=== PATIENT | female | born 1980 | race Caucasian/White ===

== ENCOUNTER 2017-04-04 15:55 | Inpatient (IN) | payer BC ==
--- NOTE | 2017-04-04 16:59 | PCM.LDHP ---
<Louise Gama - Last Filed: 04/04/17 17:46> L&D History of Present Illness - General Date of Service: 04/04/17 Admit Problem/Dx: Admission Diagnosis/Problem Admission Diagnosis/Problem "My water broke" 04/04/17 16:50 Source of Information: Patient, Old Records, RN History Limitations: Reports: No Limitations - History of Present Illness Introduction:: 36 year old [id number] at 39w5d with SEBASTIEN 04/06/2017 and regular care presents with spontaneous rupture of membranes. Membranes ruptured at 1530 this afternoon with clear amniotic fluid. She has not been feeling contractions before, during, or after her membranes ruptured. She was experiencing Angelina-Carias contractions for the last week in her abdomen. She has had regular OB appointments with Dr. Jackman. Denies fever, vision changes, headaches, nausea, vomiting, paresthesias, urticaria. Ankle edema has been "better recently". Her mother and Ar are with her in the room. labs: GBS Positive Gonorrhea Negative Chlamydia Negative Wet Prep Negative Trichomonas, clue cells, Fungal elements, Budding yeast HIV Negative HBV Negative RPR Non-Reactive Flu vaccine 12/06/16 Tdap 01/09/17 RN Cervical Check: 3 cm Dilated 50% effaced Timing/Duration: Reports: hour(s):, gradual onset, other (Patient is not feeling contractions, Contractions every 5-6 minutes for 60-90 seconds on monitor ) Location, : Reports: Abdomen (Angelina-Carias felt "in front" ), Uterus Severity: Mild Context: Reports: Rest (Patient had laid down for nap when water broke ) Associated Symptoms: Reports: vaginal discharge (Mucous plug discharge for past week ) - Related Data Allergies/Adverse Reactions: Allergies Allergy/AdvReac Type Severity Reaction Status Date / Time No Known Allergies Allergy Verified 04/04/17 16:23 Home Medications: Home Meds Omeprazole Magnesium [Prilosec Otc] 1 tab PO DAILY 01/31/17 [History] Vit with Ca/FA/Iron [ Plus Iron] 1 tab PO DAILY 01/31/17 [ History] Past Medical History Cardiovascular History: Reports: High Cholesterol Gastrointestinal History: Reports: GERD : 1 Para: 0 Neurological History: Reports: Migraines Psychiatric History: Reports: Anxiety Endocrine/Metabolic History: Reports: Obesity/BMI 30+ Other Endocrine/Metabolic History: Hyperlipidemia, Impaired Glucose Tolerance during controlled by diet Social & Family History - Family History Family Medical History: Noncontributory - Tobacco Use Smoking Status *Q: Former Smoker (Quit 04/2010) - Alcohol Use Alcohol Use History: Yes Days Per Week of Alcohol Use: 1 Number of Drinks Per Day: 1 Total Drinks Per Week: 1 Date of Last Drink: 06/30/16 (No alcohol in ) - Recreational Drug Use Recreational Drug Use: No H&P Review of Systems - Review of Systems: Review Of Systems: See Below General: Denies: Fever, Chills, Fatigue HEENT: Denies: Headaches, Hearing Changes, Sinus Congestion, Sore Throat, Visual Changes Pulmonary: Denies: Shortness of Breath, Wheezing, Cough, Sputum Cardiovascular: Reports: Edema (Bilateral, ankles ). Denies: Chest Pain, Lightheadedness, Syncope Gastrointestinal: Denies: Abdominal Pain, Constipation, Diarrhea, Nausea, Vomiting Genitourinary: Denies: Dysuria, Burning, Pain, Flank Pain Musculoskeletal: Reports: No Symptoms, Neck Pain. Denies: Muscle Pain, Muscle Stiffness Skin: Denies: Mottled, Diaphoresis, Rash, Urticaria Psychiatric: Reports: No Symptoms. Denies: Confusion, Agitation Neurological: Reports: No Symptoms. Denies: Dizziness, Headache, Numbness, Paresthesia, Tingling Hematologic/Lymphatic: Reports: No Symptoms Immunologic: Reports: No Symptoms L&D Exam - Exam Exam: See Below - Vital Signs Vital Signs: BP 142/79 Pulse 102 Temp 98.1F Respiration 14 Sp02 98% on Room Air Weight: 278 lb (at 03/28/17 appointment ) - OB Specific Contraction Intensity: Mild (Patient not feeling contractions) Movement: Active Heart Tones: Present Heart Tones per Min: 150 Heart Rate (FHR) Variability: Minimal (0-5 bpm) Presentation: Right Occiput Posterior (ROP) - Exam General: Alert, Oriented HEENT: Conjunctiva Clear, EOMI, Mucosa Moist & [place], Pupils Reactive Neck: Supple, Trachea Midline Lungs: Clear to Auscultation, Normal Respiratory Effort, Wheezing. No: Crackles , Rhonchi Cardiovascular: Regular Rate, Regular Rhythm, Normal S1. No: Systolic Murmur, Diastolic Murmur GI/Abdominal Exam: Normal Bowel Sounds Back Exam: Normal Inspection, Full Range of Motion Extremities: Normal Inspection, Normal Capillary Refill, Pedal Edema Skin: Warm, Dry, Intact Neurological: Cranial Nerves Intact, Reflexes Equal Bilateral, Normal Speech Psychiatric: Alert, Normal Affect, Normal Mood - Patient Data Lab Results Last 24 hrs: Laboratory Results - last 24 hr 04/04/17 Range/Units 16:00 WBC 11.2 H (5.0-10.0) 10^3/uL RBC 4.36 (4.2-5.4) 10^6/uL Hgb 13.7 (12.0-16.0) g/dL Hct 40.5 (37.0-47.0) % MCV 92.9 (80-100) fL MCH 31.4 (27.0-34.0) pg MCHC 33.8 (33.0-35.0) g/dL Plt Count 346 (150-450) 10^3/uL Result Diagrams: 04/04/17 16:00 - Problem List (1) SNOMED Code(s): 41741419 ICD Code: Z34.90 - ENCNTR FOR SUPRVSN OF NORMAL , UNSP, UNSP TRIMESTER Status: Acute Current Visit: Yes QualifierTitle: Weeks of gestation: 39 weeks Qualified Code(s): Z3A.39 - 39 weeks gestation of Problem List Initiated/Reviewed/Updated: Yes Orders Last 24hrs: Active Orders 24 hr Category Date Time Status Lactated Ringers [Ringers, Lactated] 1,000 ml Med 04/04/17 16:45 Active IV ASDIRECTED Penicillin G Potassium [Pfizerpen] 2.5 millunits Med 04/04/17 21:00 Active Sodium Chloride 0.9% [Normal Saline] 100 ml IV Q4H Penicillin G Potassium [Pfizerpen] 5 millunits Med 04/04/17 17:00 Active Sodium Chloride 0.9% [Normal Saline] 100 ml IV ONETIME Medication Orders Lactated Ringer's (Ringers, Lactated) 1,000 mls @ 125 mls/hr IV ASDIRECTED MARI Penicillin G Potassium 5 (millunits/ Sodium Chloride) 100 mls @ 200 mls/hr IV ONETIME ONE Stop: 04/04/17 17:29 Penicillin G Potassium 2.5 (millunits/ Sodium Chloride) 100 mls @ 200 mls/hr IV Q4H [facility] Assessment/Plan Comment:: Admit to [facility] Delivery. Expecting Normal Spontaneous Vaginal Delivery <TseringAmanda Wil - Last Filed: 04/04/17 18:39> L&D History of Present Illness - General Admit Problem/Dx: Admission Diagnosis/Problem Admission Diagnosis/Problem L&D Exam - Vital Signs Vital Signs: Last Vital Signs Temp 98.1 F 04/04/17 16:05 Pulse 102 H 04/04/17 16:05 Resp 18 04/04/17 16:05 BP 142/79 H 04/04/17 16:05 Pulse Ox - Patient Data Lab Results Last 24 hrs: Laboratory Results - last 24 hr 04/04/17 Range/Units 16:00 WBC 11.2 H (5.0-10.0) 10^3/uL RBC 4.36 (4.2-5.4) 10^6/uL Hgb 13.7 (12.0-16.0) g/dL Hct 40.5 (37.0-47.0) % MCV 92.9 (80-100) fL MCH 31.4 (27.0-34.0) pg MCHC 33.8 (33.0-35.0) g/dL Plt Count 346 (150-450) 10^3/uL Result Diagrams: 04/04/17 16:00 - Problem List (1) Blood type A+ SNOMED Code(s): 636937682 ICD Code: Z67.10 - TYPE A BLOOD, RH POSITIVE Status: Acute Current Visit : Yes (2) Rubella immune SNOMED Code(s): 546532024 ICD Code: Z78.9 - OTHER SPECIFIED HEALTH STATUS Status: Acute Current Visit: Yes (3) Group B Streptococcus carrier, +RV culture, currently SNOMED Code(s): 4394888084984, 4026938979616 ICD Code: O99.820 - STREPTOCOCCUS B CARRIER STATE COMPLICATING Status: Acute Current Visit: Yes (4) Primiparity SNOMED Code(s): 08196122 ICD Code: Z34.00 - ENCNTR FOR SUPRVSN OF NORMAL FIRST , UNSP TRIMESTER Status: Acute Current Visit: Yes (5) Spontaneous rupture of membranes SNOMED Code(s): 441798267 ICD Code: YBO6386 - Status: Acute Current Visit: Yes (6) Glucose intolerance of Status: Acute Current Visit: Yes (7) Obesity affecting in third trimester, antepartum SNOMED Code(s): 440222373325 ICD Code: O99.213 - OBESITY COMPLICATING , THIRD TRIMESTER Status : Acute Current Visit: Yes Problem List Initiated/Reviewed/Updated: Yes Orders Last 24hrs: Active Orders 24 hr Category Date Time Status Regular Diet [DIET] Diet 04/04/17 Dinner Active Lactated Ringers [Ringers, Lactated] 1,000 ml Med 04/04/17 16:45 Active IV ASDIRECTED Oxytocin/Normal Saline [Pitocin in NS 30 UNIT/500 ML] Med 04/04/17 18:30 Active 30 unit in 500 ml IV TITRATE Penicillin G Potassium [Pfizerpen] 2.5 millunits Med 04/04/17 21:00 Active Sodium Chloride 0.9% [Normal Saline] 100 ml IV Q4H Medication Orders Lactated Ringer's (Ringers, Lactated) 1,000 mls @ 125 mls/hr IV ASDIRECTED MARI Last Admin: 04/04/17 17:00 Dose: 125 mls/hr Penicillin G Potassium 2.5 (millunits/ Sodium Chloride) 100 mls @ 200 mls/hr IV Q4H MARI Oxytocin/Sodium Chloride (Pitocin In Ns 30 Unit/500 Ml) 30 unit in 500 mls @ 2 mls/hr IV TITRATE MARI; 2 MUNITS/MIN PRN Reason: Protocol Assessment/Plan Comment:: Assessment: 36yo @ 39w5d with SROM @ 1515 GBS + A+ RI Glucose Intolerance of increased BMI NST reactive Plan: Admit Pitocin infusion to get into active labor pattern AROM of bulging forebag with return large amount of clear fluid monitor glucose PCN prophylaxis for GBS All questions answered for family. Louise Gama, MS3 co-managing hmb
[2017-04-04] MEDS ORDERED: Penicillin G Potassium 5 MILLUNITS in Sodium Chloride 0.9% 100 ML IV ONE (17:00)
[2017-04-04] MEDS: Lactated Ringers 1,000 ML IV SCH ×2 (17:00→21:30)
[2017-04-04] MEDS ORDERED: Oxytocin/Normal Saline 30 UNIT/500 ML BAG IV SCH (18:30)
[2017-04-04] MEDS ORDERED: EPINEPHrine 1 MG/ML SDV ONE (21:06)
[2017-04-04] MEDS ORDERED: fentaNYL 100 MCG/2 ML SDV ONE (21:06)
[2017-04-04] MEDS ORDERED: Acetaminophen 325 MG Tab PO PRN (21:15)
[2017-04-04] MEDS ORDERED: Methylergonovine 0.2 MG/1 ML Amp IM PRN (21:15)
[2017-04-04] MEDS ORDERED: Misoprostol 400 MCG (4 X 100 MCG TAB) RECTAL PRN (21:15)
[2017-04-04] MEDS ORDERED: Carboprost Tromethamine 250 MCG/1 ML Amp IM PRN (21:15)
[2017-04-04] MEDS ORDERED: Sodium Chloride 0.9% 10 ML Syringe FLUSH PRN (21:15)
[2017-04-04] MEDS ORDERED: Lidocaine 1% 30 ML SDV INJECT PRN (21:15)
[2017-04-04] MEDS ORDERED: Lactated Ringers 1,000 ML IV SCH (21:15)
[2017-04-04] MEDS ORDERED: Ondansetron 4 MG/2 ML SDV IV PRN (21:15)
[2017-04-04] MEDS: Penicillin G Potassium 2.5 MILLUNITS in Sodium Chloride 0.9% 100 ML IV SCH (21:18)
--- NOTE | 2017-04-04 21:35 | PCM.SN ---
- Free Text/Narrative Note: Intrathecal. Sitting position, sterile prep and drape. 1 % lidocaine w bicarb for skinwheal to L2 L3 interspace, introducer, 24 ga pencan x 2. Pos CSF, neg heme, neg parasthesia. 0.1 ml pf 1:1000 epi, 0.4 ml pf ns, 20 mcg pf sufenta, 30 mcg pf fentanyl and 6 mg of 0.75% pf bupivacaine injected after CSF aspiration. Pt to L lateral side. Procedure time 2104 to 2129
[2017-04-05] MEDS: Lactated Ringers 1,000 ML IV SCH (00:37)
--- NOTE | 2017-04-05 00:49 | PCM.DEL ---
L & D Note - General Info Date of Service: 04/04/17 (time of delivery: 2342) Mother's Due Date: 04/06/17 (39w5d) - Delivery Note Labor: Spontaneous, Augmented by Oxytocin Delivery Outcome: Livebirth Delivery Method: Spontaneous Vaginal Delivery-Single Infant Delivery Mode: Vacuum Extraction (regular vacuum with one contraction) Presentation: Right Occiput Anterior (BARBY) Nuchal Cord: Present (X2, sommersault maneuver used, tight loops reduced after delivery) Anesthesia Type: Intrathecal (excellent results) Amniotic Fluid Description: Clear Episiotomy Type: None Laceration: 2nd Degree (rectal check done to confirm no involvement), Vaginal, Other (posterior vaginal wall, fairly brisk red bleeding noted, bleeders tied off with 2-0 polysorb Figure of 8) Suture type: Other (Polysorb) Suture size: 2-0 Placenta: Intact, Expressed Cord: 3 Vessels Estimated Blood Loss: 300 Resuscitation Needed: No [place]: Suctioned, Bulb Syringe, Stimulated, Warmed Provider: Amanda Cagle Score 1 min: 9 Score 5 min: 9 Second Stage Interventions: Reports: Encouragement Given, Pushing Effectively, Pushing, McRobert's Position Delivery Comments (Free Text/Narrative):: pushing well with assistance of nursing staff to hold legs back as intrathecal very effective and she is not feeling legs or contractions much. head nearly with contractions/pushing. BARBY position. FHR 90-100s Reviewed use of vacuum. applied with one contraction and delivered with first pull/Louise Natan MS3. Nuchal X2, pt continued pushing and somersault maneuver employed with excellent results. Baby to mom's chest. see rest of delivery note for details. no complications. [facility]mb Vacuum Extractor Progress Note - Alternative Labor Strategies Considered Alternative Labor Strategies Considered:: Reports: Yes Strategies Considered:: Reports: Contraction Intensity Adequate, Position Changes Used to Facilitate Rotation & Descent, Empty Bladder Indications Considered:: Reports: Yes Indications:: Reports: Prolonged 2nd Stage, Shortening of 2nd Stage for Maternal Benefit, Suspicion of Immediate or Potential Compromise Time Out:: Reports: Yes Comments:: head with cxns FHR 90-100s anticipate short use of cxns with immediate success - Patient Prepared Patient Prepared:: Reports: Yes Informed Consent:: Reports: Verbal Risks: Reports: Yes Anesthesia/Analgesia Adequate:: Reports: Yes Comments:: excellent intrathecal - Probability of Success High Probability of Success:: Reports: Yes Weight Estimated:: Reports: AGA Patient Diabetic:: Reports: No (glucose intolerance, good control with diet) Pelvis Adequate:: Reports: Yes Position:: BARBY Asynclitic:: Reports: No Station:: - Application Time Maximum Application Time & Number of Pop-Offs Predetermined:: Reports: Yes Maximum Pressure Maintained in Green Zone (cm Hg):: 1 Total Application Time (min): *max=20min: 1 Number of Times Cup Disengaged:: 0 Type of Vacuum Used:: Reports: Cup: Palacio type, Cup: Soft Vacuum Extraction: Successful Comments:: vacuum one for one pull - Exit Strategy Exit strategy available:: Reports: Yes and resuscitation teams readily available:: Reports: Yes Consult as indicated:: not indicated - General Info Date of Service: 04/04/17 Admission Dx/Problem (Free Text): Admission Diagnosis/Problem Admission Diagnosis/Problem - Patient Data Vitals - Most Recent: Last Vital Signs Temp 98.3 F 04/04/17 18:00 Pulse 91 04/04/17 21:45 Resp 12 04/04/17 21:45 BP 80/52 L 04/04/17 21:45 Pulse Ox 99 04/04/17 21:45 Weight - Most Recent: 278 lb (at 03/28/17 appointment ) I&O - Last 24 Hours: Intake & Output 04/04/17 04/04/17 04/05/17 14:59 22:59 06:59 Intake Total 1200 1000 Balance 1200 1000 Lab Results Last 24 Hours: Laboratory Results - last 24 hr 04/04/17 Range/Units 16:00 WBC 11.2 H (5.0-10.0) 10^3/uL RBC 4.36 (4.2-5.4) 10^6/uL Hgb 13.7 (12.0-16.0) g/dL Hct 40.5 (37.0-47.0) % MCV 92.9 (80-100) fL MCH 31.4 (27.0-34.0) pg MCHC 33.8 (33.0-35.0) g/dL Plt Count 346 (150-450) 10^3/uL Med Orders - Current: Current Medications Acetaminophen (Tylenol) 650 mg PO Q4H PRN PRN Reason: Pain (Mild 1-3) and fever Carboprost Tromethamine (Hemabate Ds) 250 mcg IM ASDIRECTED PRN PRN Reason: HEMORRHAGE Lactated Ringer's (Ringers, Lactated) 1,000 mls @ 125 mls/hr IV ASDIRECTED MARI Last Admin: 04/05/17 00:37 Dose: 125 mls/hr Penicillin G Potassium 2.5 (millunits/ Sodium Chloride) 100 mls @ 200 mls/hr IV Q4H MARI Last Admin: 04/04/17 21:18 Dose: 200 mls/hr Oxytocin/Sodium Chloride (Pitocin In Ns 30 Unit/500 Ml) 30 unit in 500 mls @ 2 mls/hr IV TITRATE MARI; 2 MUNITS/MIN PRN Reason: Protocol Last Titration: 04/05/17 00:08 Dose: 250 mls/hr Lactated Ringer's (Ringers, Lactated) 1,000 mls @ 125 mls/hr IV ASDIRECTED MARI Lidocaine HCl (Xylocaine-Mpf 1%) 30 ml INJECT ASDIRECTED PRN PRN Reason: Perineal Repair Methylergonovine Maleate (Methergine) 0.2 mg IM ASDIRECTED PRN PRN Reason: Hemorrhage Misoprostol (Cytotec) 800 mcg RECTAL ASDIRECTED PRN PRN Reason: Hemorrhage Ondansetron HCl (Zofran) 4 mg IV Q4H PRN PRN Reason: Nausea/Vomiting Last Admin: 04/04/17 21:02 Dose: 4 mg Sodium Chloride (Saline Flush) 10 ml FLUSH ASDIRECTED PRN PRN Reason: Keep Vein Open Discontinued Medications Epinephrine HCl (Adrenalin) Confirm Administered Dose 1 mg .ROUTE .STK-MED ONE Stop: 04/04/17 21:07 Fentanyl (Sublimaze) Confirm Administered Dose 100 mcg .ROUTE .STK-MED ONE Stop: 04/04/17 21:07 Penicillin G Potassium 5 (millunits/ Sodium Chloride) 100 mls @ 200 mls/hr IV ONETIME ONE Stop: 04/04/17 17:29 Last Admin: 04/04/17 17:00 Dose: 200 mls/hr Sodium Bicarbonate (Sodium Bicarbonate 4.2%) Confirm Administered Dose 5 meq .ROUTE .STK-MED ONE Stop: 04/04/17 21:08 Sufentanil Citrate (Sufenta) Confirm Administered Dose 50 mcg .ROUTE .STK-MED ONE Stop: 04/04/17 21:08 - Problem List & Annotations (1) Blood type A+ SNOMED Code(s): 274279115 Code(s): Z67.10 - TYPE A BLOOD, RH POSITIVE Status: Acute Current Visit: Yes (2) Rubella immune SNOMED Code(s): 513382070 Code(s): Z78.9 - OTHER SPECIFIED HEALTH STATUS Status: Acute Current Visit: Yes (3) Group B Streptococcus carrier, +RV culture, currently SNOMED Code(s): 8847931142473, 0902263921243 Code(s): O99.820 - STREPTOCOCCUS B CARRIER STATE COMPLICATING Status: Acute Current Visit: Yes (4) Primiparity SNOMED Code(s): 73991356 Code(s): Z34.00 - ENCNTR FOR SUPRVSN OF NORMAL FIRST , UNSP TRIMESTER Status: Acute Current Visit: Yes (5) Spontaneous rupture of membranes SNOMED Code(s): 080417157 Code(s): HAO5733 - Status: Acute Current Visit: Yes (6) Glucose intolerance of Status: Acute Current Visit: Yes (7) Obesity affecting in third trimester, antepartum SNOMED Code(s): 110236106653 Code(s): O99.213 - OBESITY COMPLICATING , THIRD TRIMESTER Status: Acute Current Visit: Yes - Problem List Review Problem List Initiated/Reviewed/Updated: Yes - My Orders Last 24 Hours: My Active Orders 04/04/17 16:45 Lactated Ringers [Ringers, Lactated] 1,000 ml IV ASDIRECTED 04/04/17 21:00 Penicillin G Potassium [Pfizerpen] 2.5 millunits Sodium Chloride 0.9% [Normal Saline] 100 ml IV Q4H 04/04/17 21:15 Acetaminophen [Tylenol] 650 mg PO Q4H PRN Carboprost Tromethamine [Hemabate DS] 250 mcg IM ASDIRECTED PRN Lactated Ringers [Ringers, Lactated] 1,000 ml IV ASDIRECTED Lidocaine 1% [Xylocaine-MPF 1%] 30 ml INJECT ASDIRECTED PRN Methylergonovine [Methergine] 0.2 mg IM ASDIRECTED PRN Misoprostol [Cytotec] 800 mcg RECTAL ASDIRECTED PRN Ondansetron [Zofran] 4 mg IV Q4H PRN Sodium Chloride 0.9% [Saline Flush] 10 ml FLUSH ASDIRECTED PRN Resuscitation Status Routine 04/04/17 21:16 Patient Status [ADT] Routine Communication Order [RC] ASDIRECTED Notify Provider Vital Signs OB [RC] ASDIRECTED Notify Provider [RC] PRN Up ad Hilda [RC] ASDIRECTED Vital Signs [RC] PER UNIT ROUTINE Saline Lock Insert [OM.PC] Routine 04/04/17 Dinner Clear Liquid Diet [DIET] - Plan Plan:: Assessment: 36yo @ 39w5d with SROM @ 1515 GBS + A+ RI Glucose Intolerance of increased BMI NST reactive Plan: Admit Pitocin infusion to get into active labor pattern AROM of bulging forebag with return large amount of clear fluid monitor glucose PCN prophylaxis for GBS All questions answered for family. Louise Gama, MS3 co-managing hmb Delivery: VAVD @ 4958 on 04-04-17 by Louise Gama M3 with my direct assistance. 2 degree laceration of posterior wall repaired by [facility] viable female APGARs 9 & 9 BW pending nuchal X 2, BARBY see note for further details. hmb
[2017-04-05] MEDS ORDERED: Zolpidem 5 MG Tab PO PRN (01:02)
[2017-04-05] MEDS ORDERED: Benzocaine/Menthol 20%-0.5% Spray 56 GM Canister TOP PRN (01:02)
[2017-04-05] MEDS ORDERED: Simethicone 80 MG Tab.Chew PO PRN (01:02)
[2017-04-05] MEDS: Penicillin G Potassium 2.5 MILLUNITS in Sodium Chloride 0.9% 100 ML IV SCH (06:32)
--- NOTE | 2017-04-05 08:34 | PCM.PNPP ---
<Louise Gama - Last Filed: 04/05/17 08:42> - General Info Date of Service: 04/05/17 Admission Dx/Problem (Free Text): Vaginal Delivery at 39w5d. Subjective Update: Patient resting in bed, no no acute distress. She was able to walk to the bathroom and urinate yesterday with no difficulties. without difficulties. Denies fevers, chills, nausea, vomiting, or paresthesias. Functional Status: Reports: Pain Controlled, Tolerating Diet, Ambulating, Urinating - Review of Systems General: Reports: No Symptoms HEENT: Reports: No Symptoms. Denies: Headaches, Sinus Congestion, Sore Throat Pulmonary: Reports: No Symptoms. Denies: Cough, Wheezing Cardiovascular: Reports: No Symptoms Gastrointestinal: Reports: No Symptoms. Denies: Nausea, Vomiting Genitourinary: Reports: No Symptoms, Pain (Vaginal wall repair after delivery ) Musculoskeletal: Reports: No Symptoms Skin: Reports: No Symptoms. Denies: Cyanosis, Jaundice Neurological: Reports: No Symptoms. Denies: Headache, Paresthesia, Difficulty Walking Psychiatric: Reports: No Symptoms - General Info Date of Service: 04/05/17 - Patient Data Vital Signs - Most Recent: Last Vital Signs Temp 98.3 F 04/04/17 18:00 Pulse 80 04/04/17 23:15 Resp 12 04/04/17 23:15 BP 98/55 L 04/04/17 23:15 Pulse Ox 99 04/04/17 23:15 Weight - Most Recent: 278 lb (at 03/28/17 appointment ) I&O - Last 24 Hours: Intake & Output 04/04/17 04/05/17 04/05/17 22:59 06:59 14:59 Intake Total 1200 3650 Output Total 1175 Balance 1200 2475 Lab Results - Last 24 Hours: Laboratory Results - last 24 hr 04/04/17 Range/Units 16:00 WBC 11.2 H (5.0-10.0) 10^3/uL RBC 4.36 (4.2-5.4) 10^6/uL Hgb 13.7 (12.0-16.0) g/dL Hct 40.5 (37.0-47.0) % MCV 92.9 (80-100) fL MCH 31.4 (27.0-34.0) pg MCHC 33.8 (33.0-35.0) g/dL Plt Count 346 (150-450) 10^3/uL Med Orders - Current: Current Medications Acetaminophen (Tylenol) 650 mg PO Q4H PRN PRN Reason: Pain (Mild 1-3) and fever Benzocaine/Menthol (Dermoplast Pain Relief Matthews) 0 gm TOP Q4H PRN PRN Reason: Perineal comfort measures Carboprost Tromethamine (Hemabate Ds) 250 mcg IM ASDIRECTED PRN PRN Reason: HEMORRHAGE Docusate Sodium (Colace) 100 mg PO BID PRN PRN Reason: Constipation Lactated Ringer's (Ringers, Lactated) 1,000 mls @ 125 mls/hr IV ASDIRECTED MARI Last Admin: 04/05/17 00:37 Dose: 125 mls/hr Oxytocin/Sodium Chloride (Pitocin In Ns 30 Unit/500 Ml) 30 unit in 500 mls @ 2 mls/hr IV TITRATE MARI; 2 MUNITS/MIN PRN Reason: Protocol Last Titration: 04/05/17 01:44 Dose: 50 mls/hr Lactated Ringer's (Ringers, Lactated) 1,000 mls @ 125 mls/hr IV ASDIRECTED MARI Ibuprofen (Motrin) 800 mg PO Q8H PRN PRN Reason: Mild Pain or Fever Methylergonovine Maleate (Methergine) 0.2 mg IM ASDIRECTED PRN PRN Reason: Hemorrhage Misoprostol (Cytotec) 800 mcg RECTAL ASDIRECTED PRN PRN Reason: Hemorrhage Ondansetron HCl (Zofran) 4 mg IV Q4H PRN PRN Reason: Nausea/Vomiting Last Admin: 04/04/17 21:02 Dose: 4 mg Prenat Multivit/[employer] Tuber Machine Operator/Iron/Folic Ac ( Plus Iron) 1 each PO DAILY [facility] Simethicone (Simethicone) 80 mg PO Q4H PRN PRN Reason: Gas Sodium Chloride (Saline Flush) 10 ml FLUSH ASDIRECTED PRN PRN Reason: Keep Vein Open Zolpidem Tartrate (Ambien) 5 mg PO BEDTIME PRN PRN Reason: Insomnia Discontinued Medications Epinephrine HCl (Adrenalin) Confirm Administered Dose 1 mg .ROUTE .STK-MED ONE Stop: 04/04/17 21:07 Last Admin: 04/05/17 06:31 Dose: Not Given Fentanyl (Sublimaze) Confirm Administered Dose 100 mcg .ROUTE .STK-MED ONE Stop: 04/04/17 21:07 Last Admin: 04/05/17 06:31 Dose: Not Given Penicillin G Potassium 5 (millunits/ Sodium Chloride) 100 mls @ 200 mls/hr IV ONETIME ONE Stop: 04/04/17 17:29 Last Admin: 04/04/17 17:00 Dose: 200 mls/hr Penicillin G Potassium 2.5 (millunits/ Sodium Chloride) 100 mls @ 200 mls/hr IV Q4H MARI Last Admin: 04/05/17 06:32 Dose: Not Given Lidocaine HCl (Xylocaine-Mpf 1%) 30 ml INJECT ASDIRECTED PRN PRN Reason: Perineal Repair Sodium Bicarbonate (Sodium Bicarbonate 4.2%) Confirm Administered Dose 5 meq .ROUTE .STK-MED ONE Stop: 04/04/17 21:08 Last Admin: 04/05/17 06:32 Dose: Not Given Sufentanil Citrate (Sufenta) Confirm Administered Dose 50 mcg .ROUTE .STK-MED ONE Stop: 04/04/17 21:08 Last Admin: 04/05/17 06:32 Dose: Not Given - Interaction Infant Disposition, : in Room with Family Infant Interaction: Holding Feeding: Breastfed Infant; Nursed Well (Has not breast fed this AM, Infant refuse ) Support Person: Significant Other - Recovery Exam Fundal Tone: Firm Fundal Level: At Umbilicus Fundal Placement: Midline Lochia Color: Rubra/Red Bladder Status: Voiding Urinary Elimination: Voided - Exam General: Alert, Oriented, No Acute Distress HEENT: Pupils Equal, EOMI, Mucous Membr. Moist/[place] Neck: Supple Lungs: Clear to Auscultation, Normal Respiratory Effort. No: Crackles, Wheezing Cardiovascular: Regular Rate, Regular Rhythm. No: No Murmurs GI/Abdominal Exam: Normal Bowel Sounds, Soft, Rebound Extremities: Normal Inspection, Normal Capillary Refill Skin: Warm, Dry, Intact Wound/Incisions: Healing Well Neurological: No New Focal Deficit Psy/Mental Status: Alert, Normal Affect, Normal Mood - Problem List & Annotations (1) SNOMED Code(s): 83704109 Code(s): Z34.90 - ENCNTR FOR SUPRVSN OF NORMAL , UNSP, UNSP TRIMESTER Status: Acute Current Visit: Yes QualifierTitle: Weeks of gestation: 39 weeks Qualified Code(s): Z3A.39 - 39 weeks gestation of - Problem List Review Problem List Initiated/Reviewed/Updated: Yes - My Orders Last 24 Hours: My Active Orders 04/04/17 18:30 Oxytocin/Normal Saline [Pitocin in NS 30 UNIT/500 ML] 30 unit in 500 ml IV TITRATE - Assessment Assessment:: with vacuum assisted vaginal delivery, recovering well. - Plan Plan:: Assessment: 36yo @ 39w5d with SROM @ 1515 Delivery of viable female with 2 degree laceration of posterior wall repaired by Dr. Cagle GBS + treated with penicillin A+ RI Glucose Intolerance of increased BMI Plan: Plan for discharge home 04/06/17 Continue post- care per RN protocol monitor bedside glucose <Amanda Cagle - Last Filed: 04/06/17 01:00> - Patient Data Vital Signs - Most Recent: Last Vital Signs Temp 98.8 F 04/05/17 21:12 Pulse 95 04/05/17 21:12 Resp 18 04/05/17 21:12 BP 118/63 04/05/17 21:12 Pulse Ox 99 04/05/17 21:12 Med Orders - Current: Current Medications Acetaminophen (Tylenol) 650 mg PO Q4H PRN PRN Reason: Pain (Mild 1-3) and fever Benzocaine/Menthol (Dermoplast Pain Relief Matthews) 0 gm TOP Q4H PRN PRN Reason: Perineal comfort measures Carboprost Tromethamine (Hemabate Ds) 250 mcg IM ASDIRECTED PRN PRN Reason: HEMORRHAGE Docusate Sodium (Colace) 100 mg PO BID PRN PRN Reason: Constipation Last Admin: 04/05/17 20:40 Dose: 100 mg Lactated Ringer's (Ringers, Lactated) 1,000 mls @ 125 mls/hr IV ASDIRECTED MARI Last Admin: 04/05/17 00:37 Dose: 125 mls/hr Oxytocin/Sodium Chloride (Pitocin In Ns 30 Unit/500 Ml) 30 unit in 500 mls @ 2 mls/hr IV TITRATE MARI; 2 MUNITS/MIN PRN Reason: Protocol Last Titration: 04/05/17 01:44 Dose: 50 mls/hr Lactated Ringer's (Ringers, Lactated) 1,000 mls @ 125 mls/hr IV ASDIRECTED MARI Ibuprofen (Motrin) 800 mg PO Q8H PRN PRN Reason: Mild Pain or Fever Last Admin: 04/05/17 20:40 Dose: 800 mg Methylergonovine Maleate (Methergine) 0.2 mg IM ASDIRECTED PRN PRN Reason: Hemorrhage Misoprostol (Cytotec) 800 mcg RECTAL ASDIRECTED PRN PRN Reason: Hemorrhage Ondansetron HCl (Zofran) 4 mg IV Q4H PRN PRN Reason: Nausea/Vomiting Last Admin: 04/04/17 21:02 Dose: 4 mg Prenat Multivit/[place]/Iron/Folic Ac ( Plus Iron) 1 each PO DAILY [facility] Last Admin: 04/05/17 08:38 Dose: 1 each Simethicone (Simethicone) 80 mg PO Q4H PRN PRN Reason: Gas Sodium Chloride (Saline Flush) 10 ml FLUSH ASDIRECTED PRN PRN Reason: Keep Vein Open Zolpidem Tartrate (Ambien) 5 mg PO BEDTIME PRN PRN Reason: Insomnia Discontinued Medications Epinephrine HCl (Adrenalin) Confirm Administered Dose 1 mg .ROUTE .STK-MED ONE Stop: 04/04/17 21:07 Last Admin: 04/05/17 06:31 Dose: Not Given Fentanyl (Sublimaze) Confirm Administered Dose 100 mcg .ROUTE .STK-MED ONE Stop: 04/04/17 21:07 Last Admin: 04/05/17 06:31 Dose: Not Given Fentanyl (Sublimaze) 30 mcg ITHECAL .STK-MED ONE Stop: 04/05/17 15:03 Penicillin G Potassium 5 (millunits/ Sodium Chloride) 100 mls @ 200 mls/hr IV ONETIME ONE Stop: 04/04/17 17:29 Last Admin: 04/04/17 17:00 Dose: 200 mls/hr Penicillin G Potassium 2.5 (millunits/ Sodium Chloride) 100 mls @ 200 mls/hr IV Q4H [facility] Last Admin: 04/05/17 06:32 Dose: Not Given Lidocaine HCl (Xylocaine-Mpf 1%) 30 ml INJECT ASDIRECTED PRN PRN Reason: Perineal Repair Sodium Bicarbonate (Sodium Bicarbonate 4.2%) Confirm Administered Dose 5 meq .ROUTE .STK-MED ONE Stop: 04/04/17 21:08 Last Admin: 04/05/17 06:32 Dose: Not Given Sufentanil Citrate (Sufenta) Confirm Administered Dose 50 mcg .ROUTE .STK-MED ONE Stop: 04/04/17 21:08 Last Admin: 04/05/17 06:32 Dose: Not Given Sufentanil Citrate (Sufenta) 20 mcg ITHECAL .STK-MED ONE Stop: 04/05/17 15:03 - Problem List & Annotations (1) Blood type A+ SNOMED Code(s): 271568589 Code(s): Z67.10 - TYPE A BLOOD, RH POSITIVE Status: Acute Current Visit: Yes (2) Rubella immune SNOMED Code(s): 397802890 Code(s): Z78.9 - OTHER SPECIFIED HEALTH STATUS Status: Acute Current Visit: Yes (3) Group B Streptococcus carrier, +RV culture, currently SNOMED Code(s): 1269629650617, 0081121053307 Code(s): O99.820 - STREPTOCOCCUS B CARRIER STATE COMPLICATING Status: Acute Current Visit: Yes (4) Primiparity SNOMED Code(s): 91046284 Code(s): Z34.00 - ENCNTR FOR SUPRVSN OF NORMAL FIRST , UNSP TRIMESTER Status: Acute Current Visit: Yes (5) Spontaneous rupture of membranes SNOMED Code(s): 093852626 Code(s): BZE2479 - Status: Acute Current Visit: Yes (6) Glucose intolerance of Status: Acute Current Visit: Yes (7) Obesity affecting in third trimester, antepartum SNOMED Code(s): 123006720822 Code(s): O99.213 - OBESITY COMPLICATING , THIRD TRIMESTER Status: Acute Current Visit: Yes - Problem List Review Problem List Initiated/Reviewed/Updated: Yes - My Orders Last 24 Hours: My Active Orders 04/05/17 01:02 Consult to Forestry And Wildlife Manager [CONS] Routine Benzocaine/Menthol [Dermoplast Pain Relief Matthews] See Dose Instructions TOP Q4H PRN Docusate Sodium [Colace] 100 mg PO BID PRN Ibuprofen [Motrin] 800 mg PO Q8H PRN Simethicone 80 mg PO Q4H PRN Zolpidem [Ambien] 5 mg PO BEDTIME PRN Assess Lochia [WOMSER] Per Unit Routine Assess Uterine Involution [WOMSER] Per Unit Routine Breast Pump [WOMSER] Per Unit Routine Ice Therapy [OM.PC] Per Unit Routine Perineal Care [OM.PC] Per Unit Routine Sitz Bath [OM.PC] Per Unit Routine 04/05/17 09:00 Vit with Ca/FA/Iron [ Plus Iron] 1 each PO DAILY 04/06/17 05:11 CBC W/O DIFF,HEMOGRAM [HEME] AM - Plan Plan:: Addendum: Note above by Louise Gama reviewed and edited. Agree with evaluation and treatment plan as outlined above. Dr. Jackman to see upon her return 04-06-17. b
[2017-04-05] MEDS: Prenatal Multivitamin with Calcium/Folic Acid/Iron Tab PO SCH (08:38)
[2017-04-05] MEDS: Docusate Sodium 100 MG Cap PO PRN ×2 (08:38→20:40)
[2017-04-05] MEDS: Ibuprofen 800 MG Tab PO PRN ×2 (12:08→20:40)
[2017-04-05] MEDS ORDERED: fentaNYL 100 MCG/2 ML SDV ITHECAL ONE (15:02)
[2017-04-06] MEDS: Ibuprofen 800 MG Tab PO PRN (03:38)
[2017-04-06] MEDS: Prenatal Multivitamin with Calcium/Folic Acid/Iron Tab PO SCH (09:27)
[2017-04-06] MEDS: Docusate Sodium 100 MG Cap PO PRN (09:27)
[2017-04-06 09:45] VITALS: BP 122/43
--- NOTE | 2017-04-06 11:06 | DISCH ---
Louise Gama [facility] dictating for Dr. Gasper Blunt. ADMISSION DIAGNOSES: Spontaneous rupture of membranes of a 36-year-old now [id number] Estimated gestational age of 39w5d by last menstrual period, approximately June 30, 2016. DISCHARGE DIAGNOSES: Same on admission plus Delivery of a viable female by vacuum-assisted vaginal delivery. Now PROCEDURES PERFORMED: 1. Nonstress test reactive. 2. Artificial rupture of membranes, forebag. 3. Pitocin induction. 4. Vacuum-assisted vaginal delivery. 5. Second-degree laceration repair, posterior vaginal wall. COMPLICATIONS: GBS positive, glucose impaired/intolerance to glucose in , obesity affecting . BRIEF HISTORY: The patient is a 36-year-old now [id number] admitted on 04/04/2017 with spontaneous rupture of membranes. Membranes have ruptured at approximately 1500 on 03/25/17 with clear fluid. The patient presented to Labor and Delivery approximately 3 cm dilated and not feeling contractions. Cervical check showed progression to 3.5cm. Dr. Cagle performed cervical check and artificial rupture of the forebag of amniotic fluid. Group B Strep treated with Penicillin. Pitocin was started at 2 units/ min and increased to to 4 units/min. HOSPITAL COURSE: The patient was in first stage of labor for approximately 6 hours. She was in second stage of labor for 20 minutes. Vacuum- assisted delivery was used. Vacuum was applied with one contraction and then delivered upon the first pull. Viable female infant delivered at 2342 on . The infant had a nuchal cord wrapped twice on the neck. The patient continued to push, and the somersault maneuver was employed to remove the nuchal cord. Baby was placed to mother's chest. Cord was clamped after pulsing ceased. Father of the baby cut the cord. Cord blood was collected. APGARs 9/9 at one and 5 minutes respectively. weight 7 lb 10 oz 2nd degree posterior vaginal wall laceration was repaired by Dr. Cagle. Post did well. Ambulating, tolerating regular diet. Voiding and stooling. No complaints. Breast feeding improved. LABORATORY DATA: 04/06/2017 Hemoglobin 11.4 WBC 12. DISCHARGE CONDITION: Good. Patient . General: Resting in bed, in no acute distress HEENT: Atraumatic. PERRLA, Mucous membranes moist, red. Cardiac: S1, S2 regular rate and rhythm. No murmurs, rubs. Peripheral pulses palpable, equal in strength bilateral Pulmonary: Lungs clear to auscultation in anterior and posterior head. No cough, wheeze, or rales. Abdomen: Bowel sounds normoactive. Abdomen soft and non-tender to palpation. Uterus firm and 1 finger breadth below umbilicus Musculoskeletal: ROM appropriate. No joint swelling Skin: Warm, dry. Elastic turgor. DISPOSITION: Discharge to home. FOLLOW-UP 6 week post- appointment with Dr. Jackman at [facility]. INSTRUCTIONS: Patient may shower. Resume activity as tolerated. Resume diet as tolerated. Pelvic rest for 6 weeks. MEDICATIONS: OTC iron, ibuprofen, tylenol. Patient seen and examined. Agree with note as scribed on my behalf by Louise Gama , MS3. -linoleum layer 04/10/17 1748 [facility] /[id number] MTDSlick
[2017-04-06] MEDS ORDERED: EPINEPHrine 1 MG/ML SDV ONE (11:14)
--- NOTE | 2017-04-07 05:19 | DISCH ---
DISCHARGE DIAGNOSES: 1. A 36-year-old at 39 weeks 5 days. 2. Delivery of viable female . PROCEDURES PERFORMED: 1. Vacuum-assisted vaginal delivery with spontaneous rupture of membranes. 2. Second-degree laceration repair. 3. NST, reactive. 4. Artificial rupture of membranes of the forebag. 5. Pitocin induction. COMPLICATIONS: 1. Glucose impaired/intolerance to glucose of . 2. GBS positive. PERTINENT FINDINGS, PHYSICAL, AND HISTORY: The patient is a 36-year-old , now para 1-0-0-1 female, who is admitted at 39 weeks 5 days on 04/04/2017 with spontaneous rupture of membranes. She had artificial rupture of membranes of the forebag done. Pitocin was started at 2 units per minute and increased to 4. The patient had vacuum-assisted vaginal delivery producing a viable female infant with a nuchal cord wrapped twice around her neck. procedure was performed to unwind the nuchal cord. HOSPITAL COURSE: The patient was admitted on 04/04/2017 with spontaneous rupture of membranes. The patient was given Pitocin running at 2 units per minute and then increased to 4 units per minute. The patient began to push. CONDITION ON DISCHARGE: Stable. DISCHARGE PHYSICAL EXAMINATION: Vital Signs: Temperature 98.8, pulse rate of 95, blood pressure 118/63, respiration rate of 16, and O2 saturations at 99% on room air. General Condition: The patient lying in bed, in no apparent distress. HEENT: Head is atraumatic. Pupils round and reactive to light. Extraocular movements intact. No mouth sores. Neck: Supple. Trachea is midline. Cardiovascular: No murmurs. No rubs. S1 and S2, regular rate and rhythm. Abdomen: Soft. Uterus is palpable and is firm at 1 finger below umbilicus. Extremities: No pedal edema. Range of motion appropriate. [facility] /[id number]
== END 2017-04-06 11:15 | disposition home or self-care (01) | DRG 560 ==
LOC: DL.OBCHECK 15:55 → DL.OB 16:14 → OBSVTOIN 23:42
PROVIDERS: ADMIT Family Medicine; ATTEND Family Medicine
PROC: 10D07Z6 Extraction of Products of Conception, Vacuum, Via Natural or Artificial Opening (ICD-10-PCS; principal; 2017-04-04)
PROC: 10907ZC Drainage of Amniotic Fluid, Therapeutic from Products of Conception, Via Natural or Artificial Opening (ICD-10-PCS; 2017-04-04)
PROC: 0KQM0ZZ Repair Perineum Muscle, Open Approach (ICD-10-PCS; 2017-04-04)
PROC: 00HU33Z Insertion of Infusion Device into Spinal Canal, Percutaneous Approach (ICD-10-PCS; 2017-04-04)
PROC: 3E033VJ Introduction of Other Hormone into Peripheral Vein, Percutaneous Approach (ICD-10-PCS; 2017-04-04)
DX: O99.824 Streptococcus B carrier state complicating childbirth (principal); O69.81X0 Labor and delivery complicated by cord around neck, without compression, not applicable or unspecified; O70.1 Second degree perineal laceration during delivery; O99.214 Obesity complicating childbirth; Z3A.39 39 weeks gestation of pregnancy; Z37.0 Single live birth; Z87.891 Personal history of nicotine dependence; O99.62 Diseases of the digestive system complicating childbirth; K21.9 Gastro-esophageal reflux disease without esophagitis; O99.814 Abnormal glucose complicating childbirth
CPT/HCPCS: 36415; 59300; 59409; 83986; 85027; A9270-GY; J0171; J2405; J2540; J2590; J3010; J7050; J7120

== ENCOUNTER 2021-04-21 06:31 | Day surgery (SDC) | payer BC ==
[~2021-04-21 06:31] MED LIST: Dextrose 5%-0.45% NaCl 1,000 ML IV SCH; Midazolam 1 MG/ML 2 ML SDV ONE; fentaNYL 100 MCG/2 ML SDV ONE
[2021-04-21] MEDS ORDERED: Midazolam 1 MG/ML 2 ML SDV IV ONE ×3 (06:32→08:30)
[2021-04-21] MEDS ORDERED: fentaNYL 100 MCG/2 ML SDV IV ONE ×3 (06:32→08:29)
[2021-04-21 11:08] VITALS: BP 124/79; PULSE 83
== END 2021-04-21 10:55 | disposition home or self-care (01) ==
LOC: DL.ENDO 06:31
PROVIDERS: ATTEND Internal Medicine Gastroenterology
DX: K31.7 Polyp of stomach and duodenum (principal); E66.01 Morbid (severe) obesity due to excess calories; K21.9 Gastro-esophageal reflux disease without esophagitis; Z68.43 Body mass index [BMI] 50.0-59.9, adult
CPT/HCPCS: 43239; 81025; 87077; J2250; J3010; J7042

== ENCOUNTER 2022-10-16 07:22 | Emergency (ER) | payer BC, OTHER ==
[2022-10-16 07:33] VITALS: BP 102/72; PULSE 69
[2022-10-16] MEDS ORDERED: HYDROmorphone 1 MG/ML Syringe IVPUSH ONE (07:47)
[2022-10-16] MEDS ORDERED: Sodium Chloride 0.9% 1,000 ML IV ONE (07:47)
[2022-10-16] MEDS ORDERED: Ondansetron 4 MG/2 ML SDV IV ONE (07:47)
[2022-10-16] MEDS ORDERED: Sodium Chloride 0.9% 10 ML Syringe FLUSH PRN (07:49)
[2022-10-16 08:02] LABS: BASOPHILS PERCENT AUTO 0.8 % (0.0-1.0); EOSINOPHILS PERCENT AUTO 2.1 % (1.0-3.0); HEMATOCRIT 41.7 % (37.0-47.0); HEMOGLOBIN 14.1 g/dL (12.0-16.0); LYMPHOCYTES PERCENT AUTO 26.3 % (20.5-50.1); MEAN CORPUSCULAR HEMOGLOBIN 29.1 pg (27.0-34.0); MEAN CORPUSCULAR HGB CONC 33.8 g/dL (33.0-35.0); MEAN CORPUSCULAR VOLUME 86.2 fL (80-100); MONOCYTES PERCENT AUTO 6.5 % (2-8); NEUTROPHILS PERCENT AUTO 64.3 % (42.2-75.2); PLATELET COUNT,PLT 359 10^3/uL (150-450); RED BLOOD CELL COUNT 4.84 10^6/uL (4.2-5.4); WHITE BLOOD CELL COUNT,WBC 8.3 10^3/uL (5.0-10.0)
[2022-10-16 08:25] LABS: ALANINE AMINOTRANSFERASE,ALT 19 U/L (14-59); ALBUMIN 3.6 g/dL (3.4-5.0); ALKALINE PHOSPHATASE 63 U/L (46-116); ANION GAP 16.7 mEq/L (7-13); ASPARTATE AMNIOTRANSFERASE,AST 15 U/L (15-37); BILIRUBIN TOTAL 0.4 mg/dL (0.2-1.0); BLOOD UREA NITROGEN,BUN 14 mg/dL (7-18); BUN/CREATININE RATIO 15.2 (No establ ref range); CALCIUM 8.9 mg/dL (8.5-10.1); CARBON DIOXIDE,CO2 23 mmol/L (21-32); CHLORIDE,CL 106 mmol/L (98-107); CREATININE 0.92 mg/dL (0.55-1.02); EST CRCL DRUG DOSING (CG) 73.87 mL/min; GLUCOSE RANDOM 93 mg/dL (70-99); LIPASE 100 U/L (73-393); POTASSIUM,K 3.7 mmol/L (3.5-5.1); PROTEIN TOTAL,TP 7.3 g/dL (6.4-8.2); SODIUM,NA 142 mmol/L (136-145)
[2022-10-16 08:28] LABS: LACTIC ACID 1.5 mmol/L (0.4-2.0)
[2022-10-16 08:30] LABS: ESTIMATED GFR 81 mL/min (>=60); HCG QUALITATIVE,SERUM NEGATIVE (NEGATIVE)
[2022-10-16 09:06] LABS: APPEARANCE,URINE SLIGHTLY CLOUDY (CLEAR); BILIRUBIN,URINE NEGATIVE (NEGATIVE); COLOR,URINE AMBER (YELLOW); GLUCOSE,URINE NEGATIVE (NEGATIVE); KETONES,URINE TRACE (NEGATIVE); LEUKOCYTE ESTERASE,URINE NEGATIVE (NEGATIVE); NITRITE,URINE NEGATIVE (NEGATIVE); OCCULT BLOOD,URINE MODERATE (NEGATIVE); PROTEIN,URINE 100 (NEGATIVE); UROBILINOGEN,URINE 0.2 mg/dL (0.2-1.0)
[2022-10-16 09:22] LABS: BACTERIA,URINE MODERATE /HPF (0-FEW/HPF); CALCIUM OXALATE CRYSTALS,URINE FEW /HPF (NOT SEEN); EPITHELIAL CELLS,URINE MODERATE /HPF (NOT SEEN); MUCUS,URINE MODERATE /LPF (NOT SEEN); WBC,URINE 20-30 /HPF (0-5/HPF)
[2022-10-16] MEDS ORDERED: Ketorolac 30 MG/ML SDV IVPUSH ONE (09:22)
[2022-10-16] MEDS ORDERED: Tamsulosin 0.4 MG Cap.ER PO ONE (09:23)
[2022-10-16] MEDS ORDERED: Take Home: Acetaminophen/HYDROcodone 325-5 MG, 5 Tab Pack PO ONE (09:23)
[2022-10-16] MEDS ORDERED: Take Home: Ondansetron 4 MG Tab.DIS, 5 Tab Pack PO ONE (09:24)
== END 2022-10-16 09:52 | disposition home or self-care (01) ==
LOC: DL.ED 07:22
DX: N20.0 Calculus of kidney (principal); K21.9 Gastro-esophageal reflux disease without esophagitis; E78.00 Pure hypercholesterolemia, unspecified; E66.9 Obesity, unspecified; Z68.34 Body mass index [BMI] 34.0-34.9, adult; Z86.16 Personal history of COVID-19; Z90.49 Acquired absence of other specified parts of digestive tract
CPT/HCPCS: 36415; 74176; 80053; 81001; 83605; 83690; 84703; 85025; 96361; 96374; 96375; 99284; A9270; J1170; J1885; J2405; J7030; Q0162; J3490

== ENCOUNTER 2024-03-18 06:58 | Day surgery (SDC) | payer OTHER ==
[2024-03-18] MEDS: Dextrose 5%-0.45% NaCl 1,000 ML IV SCH (07:28)
[2024-03-18] MEDS ORDERED: fentaNYL 100 MCG/2 ML SDV ONE (07:51)
[2024-03-18] MEDS ORDERED: fentaNYL 100 MCG/2 ML SDV IV ONE (07:51)
[2024-03-18] MEDS ORDERED: Midazolam 1 MG/ML 2 ML SDV ONE (07:51)
[2024-03-18] MEDS ORDERED: Midazolam 1 MG/ML 2 ML SDV IV ONE (07:51)
[2024-03-18] MEDS: fentaNYL 100 MCG/2 ML SDV IV ONE ×2 (08:03→08:04)
[2024-03-18] MEDS: Midazolam 1 MG/ML 2 ML SDV IV ONE ×2 (08:04)
[2024-03-18 08:28] VITALS: PULSE 67
[2024-03-18 10:04] VITALS: BP 109/62
== END 2024-03-18 09:52 | disposition home or self-care (01) ==
LOC: DL.ENDO 06:58
PROVIDERS: ATTEND Internal Medicine Gastroenterology
DX: K21.9 Gastro-esophageal reflux disease without esophagitis (principal); F32.A Depression, unspecified; E78.5 Hyperlipidemia, unspecified; J45.20 Mild intermittent asthma, uncomplicated; E66.9 Obesity, unspecified; Z68.41 Body mass index [BMI] 40.0-44.9, adult
CPT/HCPCS: 43239; J2250; J3010; J7799

== ENCOUNTER 2024-09-11 09:40 | Emergency (ER) | payer OTHER ==
[2024-09-11 10:08] LABS: APPEARANCE,URINE CLEAR (CLEAR); GLUCOSE,URINE NEGATIVE (NEGATIVE); OCCULT BLOOD,URINE MODERATE (NEGATIVE)
[2024-09-11] MEDS: fentaNYL 100 MCG/2 ML SDV IVPUSH ONE (10:13)
[2024-09-11] MEDS: Ondansetron 4 MG/2 ML SDV IVPUSH ONE (10:14)
[2024-09-11] MEDS: Ketorolac 30 MG/ML SDV IVPUSH ONE (10:14)
[2024-09-11 10:17] LABS: EPITHELIAL CELLS,URINE FEW /HPF (NOT SEEN)
[2024-09-11 11:30] VITALS: BP 114/54; PULSE 56
[2024-09-11] MEDS ORDERED: Take Home: Acetaminophen/HYDROcodone 325-5 MG, 5 Tab Pack PO ONE (11:59)
[2024-09-11] MEDS ORDERED: Take Home: Ondansetron 4 MG Tab.DIS, 5 Tab Pack PO ONE (11:59)
== END 2024-09-11 13:08 | disposition home or self-care (01) ==
LOC: DL.ED 09:40
DX: N20.0 Calculus of kidney (principal); E78.00 Pure hypercholesterolemia, unspecified; K21.9 Gastro-esophageal reflux disease without esophagitis; E66.9 Obesity, unspecified; Z79.899 Other long term (current) drug therapy; Z86.16 Personal history of COVID-19
CPT/HCPCS: 74176; 81001; 81025; 96374; 96375; 99283; 99284-25; J1885; J2405; J3010